=== PATIENT | female | born 1930 | race Caucasian/White ===

== ENCOUNTER → 2017-11-01 | Outpatient (CLI) | payer MEDICARE ==
[~2017-11-01] MED LIST: ACET325 PO; ASPI81CH PO; BUME2 PO; CALC.25 PO; CHOL10002; CIPR500 PO; DICL75ER; DONE10 PO; FISH OIL 500 M1 EAC2 PO; FLUO25TC TOP; IBUP400 PO; IBUP600 PO; LOSA25 PO; MECL12.5 PO; MIDO2.5 PO; Motion Sickness25 M1 PO; OXYACE5T PO; Omeprazole20 M1; POTCHL10ER PO; Zoloft50 MG PO
[2017-11-01 14:57] LABS: BASOPHILS ABSOLUTE AUTO 0.02 K/mm3 (0.00-0.23); BASOPHILS PERCENT AUTO 0 % (0-2); EOSINOPHILS ABSOLUTE AUTO 0.71 K/mm3 (0.00-0.68); EOSINOPHILS PERCENT AUTO 9 % (0-6); Hematocrit 37.9 % (33.0-51.0); Hemoglobin 12.5 g/dL (11.5-16.0); IMMATURE GRAN ABSOLUTE AUTO 0.02 K/mm3 (0.00-0.10); IMMATURE GRAN PERCENT AUTO 0 % (0-1); LYMPHOCYTES ABSOLUTE AUTO 1.74 K/mm3 (0.84-5.20); LYMPHOCYTES PERCENT AUTO 23 % (21-46); MONOCYTES ABSOLUTE AUTO 0.79 K/mm3 (0.16-1.47); MONOCYTES PERCENT AUTO 10 % (4-13); Mean Corpuscular HGB 29.3 pg (26.0-34.0); Mean Corpuscular Volume 89 fL (80-100); NEUTROPHILS ABSOLUTE AUTO 4.32 K/mm3 (1.96-9.15); NEUTROPHILS PERCENT AUTO 57 % (41-73); Platelet Count 109 K/mm3 (150-400); RDW Coefficient Variation 14.3 % (11.7-14.2); Red Blood Cell Count 4.27 M/mm3 (3.80-5.20)
[2017-11-01 15:31] LABS: Albumin, Blood 3.6 g/dL (3.4-5.0); Albumin/Globulin Ratio 0.8 (0.8-1.8); Bilirubin, Total 0.3 mg/dL (0.1-1.0); Bun/Creatinine Ratio 17.5 (12.0-20.0); Calcium, Blood 9.1 mg/dL (8.5-10.1); Creatinine, Blood 1.26 mg/dL (0.40-1.00); Globulin, Blood 4.7 g/dL (2.2-4.0); Potassium, Blood 3.6 mmol/L (3.5-5.5); Thyroid Stimulating Hormone 4.201 uIU/mL (0.360-4.800); Total Protein, Blood 8.3 g/dL (6.4-8.2)
== END ==
LOC: LAB EV 14:51 → LAB SHORT 14:51
PROVIDERS: Physician Assistant
DX: D69.6 Thrombocytopenia, unspecified (principal); R53.83 Other fatigue
CPT/HCPCS: 80053; 82607; 82746; 84443; 85025

== ENCOUNTER → 2017-11-02 | Outpatient (CLI) | payer MEDICARE ==
[2017-11-02 11:57] LABS: Appearance, Urine Clear (Clear); Bilirubin, Urine Neg (Neg); Blood, Urine Neg (Neg); Color, Urine Yellow (P-Yellow); Glucose Qualitative, Urine Neg (Normal); Ketones, Urine Neg (Neg); Leukocyte Esterase, Urine Neg (Neg); Nitrite, Urine Neg (Neg); Protein, Urine Neg (Neg); Specific Gravity, Urine 1.015 (1.003-1.022); Urobilinogen, Urine NORM (Normal); pH, Urine 6.5 (5.0-8.0)
== END ==
LOC: LAB SHORT 11:51 → LAB EV 11:51
PROVIDERS: Physician Assistant
DX: R53.83 Other fatigue (principal)
CPT/HCPCS: 81003

== ENCOUNTER → 2017-12-22 | Outpatient (CLI) | payer MEDICARE | LOC: LAB SHORT 13:32 → PLD 13:32 | DX: D48.5 Neoplasm of uncertain behavior of skin (principal) | CPT/HCPCS: 88305 ==

== ENCOUNTER → 2019-04-03 | Outpatient (CLI) | payer MEDICARE ==
[~2019-04-03] MED LIST changes: +Colace250 MG PO; +Norco 5-325 Ta1 EACH PO; +Zofran Odt4 MG SL
[2019-04-03 11:02] LABS: Albumin, Blood 3.3 g/dL (3.4-5.0); Anion Gap 7 mmol/L (6-16); Blood Urea Nitrogen 21 mg/dL (8-24); Bun/Creatinine Ratio 18.6 (12.0-20.0); CO2, Blood 32 mmol/L (21-32); Chloride, Blood 100 mmol/L (98-108); Creatinine, Blood 1.13 mg/dL (0.40-1.00); Glomerular Filtration Rate 48 (60-); Glucose, Blood 183 mg/dL (70-99); Phosphorus, Blood 2.7 mg/dL (2.5-4.9); Potassium, Blood 3.7 mmol/L (3.5-5.5); Sodium, Blood 139 mmol/L (136-145)
== END | disposition home or self-care (01) ==
LOC: EDSTATUS 08:45 → LAB HD 08:45
PROVIDERS: Internal Medicine Nephrology
DX: N18.3 Chronic kidney disease, stage 3 (moderate) (principal); D63.1 Anemia in chronic kidney disease
CPT/HCPCS: 36415; 80069; 85018

== ENCOUNTER → 2019-06-08 | Outpatient (CLI) | payer MEDICARE ==
[2019-06-08 17:00] LABS: BASOPHILS ABSOLUTE AUTO 0.01 K/mm3 (0.00-0.23); BASOPHILS PERCENT AUTO 0 % (0-2); EOSINOPHILS ABSOLUTE AUTO 0.45 K/mm3 (0.00-0.68); EOSINOPHILS PERCENT AUTO 6 % (0-6); Hematocrit 33.7 % (33.0-51.0); Hemoglobin 10.7 g/dL (11.5-16.0); IMMATURE GRAN ABSOLUTE AUTO 0.02 K/mm3 (0.00-0.10); IMMATURE GRAN PERCENT AUTO 0 % (0-1); LYMPHOCYTES ABSOLUTE AUTO 1.34 K/mm3 (0.84-5.20); LYMPHOCYTES PERCENT AUTO 18 % (21-46); MONOCYTES ABSOLUTE AUTO 0.93 K/mm3 (0.16-1.47); MONOCYTES PERCENT AUTO 12 % (4-13); Mean Corpuscular HGB 27.1 pg (26.0-34.0); Mean Corpuscular HGB Conc 31.8 g/dL (31.5-36.5); Mean Corpuscular Volume 85 fL (80-100); NEUTROPHILS ABSOLUTE AUTO 4.73 K/mm3 (1.96-9.15); NEUTROPHILS PERCENT AUTO 63 % (41-73); RDW Coefficient Variation 15.5 % (11.7-14.2); Red Blood Cell Count 3.95 M/mm3 (3.80-5.20); White Blood Cell Count 7.48 K/mm3 (4.00-11.30)
[2019-06-08 17:14] LABS: Albumin, Blood 3.5 g/dL (3.4-5.0); Albumin/Globulin Ratio 0.7 (0.8-1.8); Bilirubin, Total 0.3 mg/dL (0.1-1.0); Bun/Creatinine Ratio 23.9 (12.0-20.0); Calcium, Blood 8.8 mg/dL (8.5-10.1); Creatinine, Blood 1.55 mg/dL (0.40-1.00); Globulin, Blood 4.9 g/dL (2.2-4.0); Potassium, Blood 4.1 mmol/L (3.5-5.5); Total Protein, Blood 8.4 g/dL (6.4-8.2)
[2019-06-08 17:54] LABS: Mean Platelet Volume 11.5 fL (9.1-12.4); Platelet Count 117 K/mm3 (150-400)
== END ==
LOC: LAB SHORT 16:51 → LAB EV 16:51
PROVIDERS: Physician Assistant
DX: R06.00 Dyspnea, unspecified (principal)
CPT/HCPCS: 80053; 83880; 85025

== ENCOUNTER 2019-07-17 15:28 | Emergency (ER) | payer MEDICARE ==
[~2019-07-17] VITALS: Ht 160 cm; Wt 90.7 kg
[~2019-07-17 15:28] MED LIST changes: -ALBU90OI INH; -ALDACTONE25 MG PO; -GABA100 PO; -Nitrostat0.3 MG SL
[2019-07-17] MEDS ORDERED: Nitrostat0.3 MG SL (16:26)
[2019-07-17] MEDS ORDERED: ALDACTONE25 MG PO (16:26)
== END 2019-07-17 16:47 | disposition home or self-care (01) ==
LOC: ER 15:28
DX: R79.89 Other specified abnormal findings of blood chemistry (principal); M19.011 Primary osteoarthritis, right shoulder; I12.9 Hypertensive chronic kidney disease with stage 1 through stage 4 chronic kidney disease, or unspecified chronic kidney disease; N18.9 Chronic kidney disease, unspecified; I25.10 Atherosclerotic heart disease of native coronary artery without angina pectoris; E78.5 Hyperlipidemia, unspecified; J44.9 Chronic obstructive pulmonary disease, unspecified; F03.90 Unspecified dementia, unspecified severity, without behavioral disturbance, psychotic disturbance, mood disturbance, and anxiety; Z87.891 Personal history of nicotine dependence; Z79.899 Other long term (current) drug therapy; Z79.82 Long term (current) use of aspirin
CPT/HCPCS: 36415; 70450; 73030; 93005; 93010; 99284-25

== ENCOUNTER → 2019-07-17 | Outpatient (CLI) | payer MEDICARE ==
[~2019-07-17] MED LIST changes: +ALBU90OI INH; +ALDACTONE25 MG PO; -BUME2 PO; +Bumetanide2 MG PO; -CHOL10002; -DONE10 PO; +DONEPEZIL HCL10 MG PO; +FISH OIL 1,0001 EAC2 PO; -FISH OIL 500 M1 EAC2 PO; +GABA100 PO; +Nitrostat0.3 MG SL; +OMEPRAZOLE20 MG PO; -Omeprazole20 M1; +POTA10T PO; -POTCHL10ER PO; +SERT25 PO; +VITAMIN D34000 UNIT PO; -Zoloft50 MG PO
[2019-07-17 14:03] LABS: BASOPHILS ABSOLUTE AUTO 0.01 K/mm3 (0.00-0.23); BASOPHILS PERCENT AUTO 0 % (0-2); EOSINOPHILS ABSOLUTE AUTO 0.49 K/mm3 (0.00-0.68); EOSINOPHILS PERCENT AUTO 6 % (0-6); Hematocrit 32.7 % (33.0-51.0); Hemoglobin 10.1 g/dL (11.5-16.0); IMMATURE GRAN ABSOLUTE AUTO 0.03 K/mm3 (0.00-0.10); IMMATURE GRAN PERCENT AUTO 0 % (0-1); LYMPHOCYTES ABSOLUTE AUTO 1.78 K/mm3 (0.84-5.20); LYMPHOCYTES PERCENT AUTO 23 % (21-46); MONOCYTES ABSOLUTE AUTO 0.87 K/mm3 (0.16-1.47); MONOCYTES PERCENT AUTO 11 % (4-13); Mean Corpuscular HGB 26.2 pg (26.0-34.0); Mean Corpuscular HGB Conc 30.9 g/dL (31.5-36.5); Mean Corpuscular Volume 85 fL (80-100); NEUTROPHILS ABSOLUTE AUTO 4.61 K/mm3 (1.96-9.15); NEUTROPHILS PERCENT AUTO 59 % (41-73); RDW Coefficient Variation 15.5 % (11.7-14.2); RDW Standard Deviation 47.5 fL (35.1-46.3); Red Blood Cell Count 3.85 M/mm3 (3.80-5.20); White Blood Cell Count 7.79 K/mm3 (4.00-11.30)
[2019-07-17 14:24] LABS: Albumin, Blood 3.1 g/dL (3.4-5.0); Albumin/Globulin Ratio 0.8 (0.8-1.8); Bilirubin, Total 0.3 mg/dL (0.1-1.0); Bun/Creatinine Ratio 18.1 (12.0-20.0); Calcium, Blood 8.9 mg/dL (8.5-10.1); Creatinine, Blood 1.27 mg/dL (0.40-1.00); Globulin, Blood 4.1 g/dL (2.2-4.0); Potassium, Blood 4.8 mmol/L (3.5-5.5); Thyroid Stimulating Hormone 3.5 uIU/mL (0.360-4.800); Total Protein, Blood 7.2 g/dL (6.4-8.2); Troponin I 0.077 ng/mL (0.000-0.040)
[2019-07-17 14:27] LABS: Mean Platelet Volume 10.9 fL (9.1-12.4); Platelet Count 97 K/mm3 (150-400)
== END | disposition home or self-care (01) ==
LOC: LAB EV 13:59 → LAB SHORT 13:59
PROVIDERS: Physician Assistant
DX: R00.2 Palpitations (principal)
CPT/HCPCS: 80053; 84443; 84484; 85025

== ENCOUNTER 2019-07-22 08:10 | Observation (INO) | payer MEDICARE ==
[~2019-07-22] VITALS: Ht 165.1 cm; Wt 108.2 kg
[~2019-07-22 08:10] MED LIST changes: +ALDACTONE25 MG PO; +Nitrostat0.3 MG SL
[2019-07-22 09:22] LABS: Source, Urine Clean Catch
[2019-07-22 09:24] LABS: Appearance, Urine Clear (Clear); Bilirubin, Urine Neg (Neg); Blood, Urine Neg (Neg); Color, Urine Yellow (P-Yellow); Glucose Qualitative, Urine Neg (Neg); Ketones, Urine Neg (Neg); Leukocyte Esterase, Urine Neg (Neg); Nitrite, Urine Neg (Neg); Protein, Urine Neg (Neg); Specific Gravity, Urine 1.015 (1.003-1.022); Urobilinogen, Urine NORM (Normal)
[2019-07-22 09:51] LABS: BASOPHILS ABSOLUTE AUTO 0.02 K/mm3 (0.00-0.23); BASOPHILS PERCENT AUTO 0 % (0-2); EOSINOPHILS ABSOLUTE AUTO 0.66 K/mm3 (0.00-0.68); EOSINOPHILS PERCENT AUTO 6 % (0-6); Hematocrit 32.5 % (33.0-51.0); IMMATURE GRAN ABSOLUTE AUTO 0.06 K/mm3 (0.00-0.10); IMMATURE GRAN PERCENT AUTO 1 % (0-1); LYMPHOCYTES ABSOLUTE AUTO 1.49 K/mm3 (0.84-5.20); LYMPHOCYTES PERCENT AUTO 13 % (21-46); MONOCYTES ABSOLUTE AUTO 1.48 K/mm3 (0.16-1.47); MONOCYTES PERCENT AUTO 13 % (4-13); Mean Corpuscular HGB 26.1 pg (26.0-34.0); Mean Corpuscular HGB Conc 30.8 g/dL (31.5-36.5); Mean Corpuscular Volume 85 fL (80-100); Mean Platelet Volume 11.2 fL (9.1-12.4); NEUTROPHILS ABSOLUTE AUTO 7.82 K/mm3 (1.96-9.15); NEUTROPHILS PERCENT AUTO 68 % (41-73); Platelet Count 118 K/mm3 (150-400); RDW Coefficient Variation 15.8 % (11.7-14.2); Red Blood Cell Count 3.83 M/mm3 (3.80-5.20); White Blood Cell Count 11.53 K/mm3 (4.00-11.30)
[2019-07-22 10:14] LABS: Albumin, Blood 3.1 g/dL (3.4-5.0); Albumin/Globulin Ratio 0.7 (0.8-1.8); Bilirubin, Total 0.3 mg/dL (0.1-1.0); Bun/Creatinine Ratio 23.1 (12.0-20.0); Creatinine, Blood 1.86 mg/dL (0.40-1.00); Globulin, Blood 4.3 g/dL (2.2-4.0); Magnesium, Blood 2.1 mg/dL (1.6-2.4); Potassium, Blood 4.4 mmol/L (3.5-5.5); Total Protein, Blood 7.4 g/dL (6.4-8.2)
--- NOTE | 2019-07-22 11:46 | NUR ---
ADMIT NOTE- PT ADMITTED D/T FREQUENT FALLS, PER REPORT PT HAS Fx CLAVACLE ON THE RIGHT. RIGHT ARM IN A SLING. PT IS COVERED IN BRUISES FROM HER FREQUENT FALLS AT HOME. SKIN TEAR PRESENT ON RIGHT ELBOW ON ADMIT, BANDAGE HAS SLIPPED DOWN AND IT WAS BLEEDING. PLACED A HEEL PROTECTOR OVER THE AREA
--- NOTE | 2019-07-22 12:20 | NUR ---
CALLED [facility] TO REQUEST AN ACTIVE MED LIST.
[2019-07-22] MEDS ORDERED: GABA100 PO (12:37)
[2019-07-22] MEDS ORDERED: Bumetanide2 MG PO (12:41)
[2019-07-22] MEDS ORDERED: ALBU90OI INH (12:43)
--- NOTE | 2019-07-22 14:53 | NUR ---
DR ROCA CAME TO SEE THE PT. STATED HE WILL PUT IN THE ADMIT ORDERS SHORTLY. PT USES INAPPROPRIATE LANGUAGE AND HAS BEEN REDIRECTED EASILY AT THIS POINT. PT IS INCONTINENT, ATTENDS IN PLACE HOWEVER PT REQUESTED TO USE THE BSC. PT TRANSFERED 2PA TO THE BEDSIDE COMODE AND BACK ATTENDS CHANGED. PT STATED PAIN IN HER RIGHT SHOULDER WHILE WAS PRESENT IN THE ROOM.
--- NOTE | 2019-07-22 17:32 | NUR ---
SHIFT SUMMARY- CALLED DR ROCA AND RECIEVED ORDER TO HOLD BUMEX, PT IS RECIEVING IVF AT THIS TIME. PT WORKED WITH PHYSICAL THERAPY THIS EVENING AFTER ADMIT. PT TRANSFERED TO THE CHAIR AND SAT UP FOR ABOUT 45MIN TO 1 HOUR BEFORE SHE GOT UP TO PUT HERSELF BACK INTO BED. CALLED TUBE DRAWING SUPERVISOR AND REQUESTED PT BE PUT ON THE MONITORS. CALLED PARTICLEBOARD FACTORY WORKER, PT PLACED ON MONITOR NOW. PT ON TELE NSR WITH A FIRST DEGREE AT 67 AT THE TIME OF ADMIT; NO CALLS ABOUT EVENTS.
--- NOTE | 2019-07-22 18:15 | NUR ---
CALLED DR ROCA- WHEN STAFF WENT TO PLACE THE DNR BRACELET ON THE PT SHE STATED NO "I WANT YOU TO DO EVERYTHING" "IF MY HEART STOPS BRING ME BACK". PT HAS A POLST FORM FROM 05-11-17 THAT SAYS FULL CODE. PER DR ROCA PT STATUS SHOULD BE CHANGED TO FULL CODE.
--- NOTE | 2019-07-23 02:20 | NUR ---
SHIFT SUMMARY: 89 Y/O FEMALE HAD RESTED COMFORTALBY; PT C/O RIGHT SHOULDER PAIN RATED 6/10 WITH NORCO 5/325MG PO GIVEN X 1 WITH RELIEF FELT; WEARING RIGHT ARM SLING (TENDS TO REMOVE AT TIMES WITH NURSING STAFF REAPPLYING); ALERT AND ORIENTED X 2; ABLE TO FOLLOW VERY SIMPLE VERBAL COMMANDS; ABLE TO STAND, PIVOT AND TRANSFER TO BSC X 2 ASSIST VIA GAIT BELT AND WALKER; PT REQUIRES FREQUENT REDIRECTION AT TIMES FROM NURSING STAFF; VITAL SIGNS STABLE; BED ALARM APPLIED, BED LOW POSITION WITH CALL LIGHT AT SIDE.
[2019-07-23 05:35] LABS: Bun/Creatinine Ratio 25.7 (12.0-20.0); Calcium, Blood 8.6 mg/dL (8.5-10.1); Creatinine, Blood 1.48 mg/dL (0.40-1.00); Potassium, Blood 4.5 mmol/L (3.5-5.5)
--- NOTE | 2019-07-23 06:35 | NUR ---
SHIFT SUMMARY: ASSUMED CARE OF PATIENT AT 0300 AFTER RECIEVING REPORT. PATIENT IS ORIENTED TO SELF BUT FOLLOWS DIRECTION WELL. PATIENT IS REMOVING TELEMETRY LEADS ALL SHIFT. [employer] REPORTS A RYTHM OF SR WITH A FIRST DEGREE BLOCK, NO EVENTS SINCE MONIOTRING STARTED. NAIL FEEDER MD IS NOTIFIED AND TELEMETRY IS DISCONTINUED. PATIENT IS REPORTING PAIN IN R SHOULDER 8/10, PRN HYDROCODONE IS GIVEN WITH GOOD EFFECT. BED ALRAM IS ON AND BED IS IN THE LOW POSITION FOR SAFETY.
--- NOTE | 2019-07-23 15:54 | NUR ---
SHIFT SUMMARY- PT ALERT AND ORIENTED TO SELF AND FAMILY. PT IS A POOR HISTORIAN. PT HAS PAIN R/T Fx RIGHT CLAVICLE. 2P MODERATE ASSIST TO THE BSC. PT HAD A BM AGAIN THIS AFTERNOON, VERY FIRM BROWN STOOL. PT IS ALSO INCONTINENT AND ATTENDS ARE IN PLACE. PT PLEASENTLY CONFUSED, USES FOUL [place]ANGUAGEE WHEN SHE MOVES (SO GOOD INDICATION SHE PLANS TO GET UP ON HER OWN WHEN YOU CAN HEAR THE CURSING IN THE HALLWAY). PT IS ALSO ON THE MONITOR SHE HAS HAD MULTIPLE FALLS RECENTLY AT HOME. PT PULLED HER IV OUT AND IS A HARD STICK, ORDERED NO IV ACCESS AT THIS TIME. TELE WAS DC'D LAST NIGHT. NEW ORDER FOR HEAD MRI, SCREENING FORM COMPLETED WITH THE PT, AND WITH HER MEDICAL RECORD. PT HAD AN MRI IN 2017. PT C/O PAIN WHEN BEING ASSISTED TO THE BATHROOM WHEN STAFF ASKED WHERE HER PAIN WAS SHE SHOUTED "MY A*#HOLE!." PT HAS BEEN MEDICATED WITH NORCO FOR PAIN PRIOR TO SHIFT CHANGE AND FAMILY WAS CONCERNED ABOUT HER LEVEL OF SEDATION.
--- NOTE | 2019-07-24 04:39 | NUR ---
SHIFT SUMMARY: 89 Y/O OBESE FEMALE RESTED COMFORTABLY ALL SHIFT; PT DID CALL FOR ANY ASSISTANCE REQUIRED TO VOID; PT ABLE TO PIVOT AND TRANSFER VIA GAIT BELT X 2 ASSIST VIA NURSING STAFF, BALANCE VERY UNSTEADY; WEARING RIGHT ARM SLING AT 45 DEGREES; PT ALERT AND ORIENTED X 2 AND SWEARS ALOT WHEN REPOSITIONED BY STAFF; PT VERY COOPERATIVE; C/O RIGHT SHOULDER PAIN 6/10 WITH NORCO 5/325MG PO X 1 GIVEN TWICE WITH RELIEF FELT; DENIES NAUSEA; BED ALARM APPLIED, BED LOW POSITION WITH CALL LIGHT AT SIDE.
[2019-07-24 05:02] LABS: BASOPHILS ABSOLUTE AUTO 0.02 K/mm3 (0.00-0.23); BASOPHILS PERCENT AUTO 0 % (0-2); EOSINOPHILS ABSOLUTE AUTO 0.66 K/mm3 (0.00-0.68); EOSINOPHILS PERCENT AUTO 9 % (0-6); Hematocrit 32.2 % (33.0-51.0); Hemoglobin 9.6 g/dL (11.5-16.0); IMMATURE GRAN ABSOLUTE AUTO 0.05 K/mm3 (0.00-0.10); IMMATURE GRAN PERCENT AUTO 1 % (0-1); LYMPHOCYTES ABSOLUTE AUTO 1.98 K/mm3 (0.84-5.20); LYMPHOCYTES PERCENT AUTO 27 % (21-46); MONOCYTES ABSOLUTE AUTO 1.11 K/mm3 (0.16-1.47); MONOCYTES PERCENT AUTO 15 % (4-13); Mean Corpuscular HGB 25.5 pg (26.0-34.0); Mean Corpuscular HGB Conc 29.8 g/dL (31.5-36.5); Mean Corpuscular Volume 86 fL (80-100); Mean Platelet Volume 10.9 fL (9.1-12.4); NEUTROPHILS ABSOLUTE AUTO 3.64 K/mm3 (1.96-9.15); NEUTROPHILS PERCENT AUTO 49 % (41-73); Platelet Count 128 K/mm3 (150-400); RDW Coefficient Variation 15.9 % (11.7-14.2); RDW Standard Deviation 49.8 fL (35.1-46.3); Red Blood Cell Count 3.76 M/mm3 (3.80-5.20); White Blood Cell Count 7.46 K/mm3 (4.00-11.30)
[2019-07-24 05:22] LABS: Bun/Creatinine Ratio 26.2 (12.0-20.0); Calcium, Blood 8.6 mg/dL (8.5-10.1); Creatinine, Blood 1.26 mg/dL (0.40-1.00); Potassium, Blood 3.8 mmol/L (3.5-5.5)
--- NOTE | 2019-07-24 12:23 | NUR ---
PROVIDER UPDATE PROVIDER CALLED WITH ORTHOSTATIC BP CHECKS, MRI CALLED TO [facility] SCAN FOR THIS AFTERNOON AT 1500.
--- NOTE | 2019-07-24 14:22 | NUR ---
MRI PT TO MRI, TRANSPORTED BY [facility].
--- NOTE | 2019-07-24 15:35 | NUR ---
PROVIDER UPDATE PROVIDER UPDATED, PT WAS UN COOPERATIVE WITH MRI STUDY.
--- NOTE | 2019-07-24 18:49 | NUR ---
SHIFT SUMMARY PT HAD NO ACUTE CHANGES THIS SHIFT. PT MEDICATED X2 FOR PAIN. PT HAS DRESSING IN PLACE ON LEFT ELBOW. PT HAD A GOOD APETITE THIS SHIFT. PT HAS BED ALARM IN PLACE AND CALL LIGHT WITH IN REACH. PT DECLINED MRI AND PT THIS SHIFT.
--- NOTE | 2019-07-24 19:50 | NUR ---
PATIENT TRANSFERRED SELF TO THE BED FROM THE CHAIR. SHE DENIED ANY PAIN OR DISCOMFORT. ASSISTED HER TO BED, AND PLACED THE CALL LIGHT IN REACH. BSC WAS PLACED NEAR THE BED SHE GETS UP AND GOES TO IT. BED ALARM PLACED. WILL CONTINUE TO MONITOR.
--- NOTE | 2019-07-25 05:10 | NUR ---
SHIFT SUMMARY: 89 Y/O FEMALE ADMITTED FOR WEAKNESS AND FALLS. SACHA HAS BEEN PLEASANTLY CONFUSED THROUGHOUT THE NIGHT. SHE WOULD NOT USE THE CALL LIGHT AND WOULD GET UP ON HER OWN. SHE WAS UNSTEADY ON HER FEET, AND NEEDING 1 ASSIST TO GET UP AND TWO ASSIST TO GET BACK TO BED. SHE HAS BEEN CONTIENT TO THE BSC. PAIN HAS BEEN MANAGED WITH NORCO. ARM HAS REMAINED IN SLING. NO ACUTE CHANGES OCCURRED THIS SHIFT. WILL REPORT TO DAY SHIFT.
[2019-07-25 05:22] LABS: BASOPHILS ABSOLUTE AUTO 0.02 K/mm3 (0.00-0.23); BASOPHILS PERCENT AUTO 0 % (0-2); EOSINOPHILS ABSOLUTE AUTO 0.65 K/mm3 (0.00-0.68); EOSINOPHILS PERCENT AUTO 8 % (0-6); Hematocrit 32.5 % (33.0-51.0); Hemoglobin 9.6 g/dL (11.5-16.0); IMMATURE GRAN ABSOLUTE AUTO 0.04 K/mm3 (0.00-0.10); IMMATURE GRAN PERCENT AUTO 1 % (0-1); LYMPHOCYTES ABSOLUTE AUTO 1.81 K/mm3 (0.84-5.20); LYMPHOCYTES PERCENT AUTO 23 % (21-46); MONOCYTES ABSOLUTE AUTO 1.09 K/mm3 (0.16-1.47); MONOCYTES PERCENT AUTO 14 % (4-13); Mean Corpuscular HGB 25.4 pg (26.0-34.0); Mean Corpuscular HGB Conc 29.5 g/dL (31.5-36.5); Mean Corpuscular Volume 86 fL (80-100); Mean Platelet Volume 11.4 fL (9.1-12.4); NEUTROPHILS ABSOLUTE AUTO 4.13 K/mm3 (1.96-9.15); NEUTROPHILS PERCENT AUTO 53 % (41-73); Platelet Count 140 K/mm3 (150-400); RDW Coefficient Variation 16.1 % (11.7-14.2); RDW Standard Deviation 49.8 fL (35.1-46.3); Red Blood Cell Count 3.78 M/mm3 (3.80-5.20); White Blood Cell Count 7.74 K/mm3 (4.00-11.30)
[2019-07-25 05:48] LABS: Bun/Creatinine Ratio 26.5 (12.0-20.0); Calcium, Blood 8.8 mg/dL (8.5-10.1); Creatinine, Blood 1.17 mg/dL (0.40-1.00); Potassium, Blood 3.7 mmol/L (3.5-5.5)
--- NOTE | 2019-07-25 15:48 | NUR ---
SHIFT SUMMARY PT HAD NO ACUTE CHANGES THIS SHIFT. PT WAS ORIENTED TO SELF AND FAMILY. PT AMBULATED WITH ASSISTANCE TO SHOWER AND TOILET. PT MEDICATED FOR PAIN X1 ONE THIS SHIFT. PT HAS DRESSING ON LEFT ELBOW. BED ALARM ON, CALL LIGHT WITH IN REACH. WILL COUNTINUE TO MONITOR THIS SHIFT AND REPORT TO [facility] RN.
--- NOTE | 2019-07-25 19:25 | NUR ---
PATIENT WAS SITTING UP IN HER CHAIR JUST GOT BACK FROM THE BATHROOM. STATES SHE IS DOING OK OTHER THEN PAIN IN HER SHOULDER. INFORMED HER WILL PULL HER PAIN MED WITH NIGHT MEDS SHE AGREED TO THIS. TOOK OUT DINNER TRAY. WATER GIVEN. CALL LIGHT IN REACH AND CHAIR ALARM ON.
--- NOTE | 2019-07-26 05:07 | NUR ---
SHIFT SUMMARY: SACHA HAS HAD A GOOD NIGHT. PAIN HAS BEEN CONTROLED. SHE ONLY NEEDED 1 DOSE TONIGHT BEFORE BED. SHE HAS BEEN ABLE TO GET UP WITH ASSISTANCE USING THE WALKER TO GO TO THE BATHROOM. SHE STILL HAS DIFFICULTY GETTING BACK TO BED. VS HAVE REMAINED STABLE. NO ACUTE CHANGES THIS SHIFT. WILL REPORT TO DAY SHIFT.
[2019-07-26 05:40] LABS: Bun/Creatinine Ratio 23.7 (12.0-20.0); Calcium, Blood 8.7 mg/dL (8.5-10.1); Creatinine, Blood 0.97 mg/dL (0.40-1.00)
--- NOTE | 2019-07-26 17:04 | NUR ---
SHIFT SUMMARY- PT A/OX2, MEDICATED X2 FOR PAIN TO RIGHT CLAVICLE. PT 1 ASSIST WITH FWW. LS CLEAR, ON RA. HRR. ORTHOSTATICS COMPLETED THIS SHIFT, NO DROP NOTED. PT AWAITING DISCHARGE HOME WITH [facility] SN[facility]. NO OTHER ACUTE CHANGES THIS SHIFT.
--- NOTE | 2019-07-26 19:40 | NUR ---
PATIENT IN BED WATCHING TV, NO ACUTE CHANGES TODAY. PAIN IS AT TOLERABLE LEVEL 3/10. ARM IN SLING, DENIES ANY NEEDS OR CONCERNS AT THIS TIME. CALL LIGHT IN REACH, BED ALARM ON.
--- NOTE | 2019-07-26 23:30 | NUR ---
PATIENT FOUND GETTING OUT OF BED, DOES NOT USE THE CALL LIGHT, ASSISTED TO BATHROOM, USING WALKER. IS ABLE TO WALK SELF TO THE BATHROOM BUT NEEDS HELP GETTING UP AND DOWN AND GETTING HER ATTENDS CHANGED. ATTENDS CHANGED, VOIDED. BACK TO BED, CALL LIGHT IN REACH BED ALARM ON.
--- NOTE | 2019-07-27 02:00 | NUR ---
PATIENT HAS BEEN RESTING UNTIL NOW WHEN SHE WAS FOUND BY MONITORS GETTING UP OUT OF BED. ASSISTED AGAIN TO THE BATHROOM WITH WALKER AND BACK TO BED. BED ALARM ON AND CALL LIGHT IN REACH.
--- NOTE | 2019-07-27 07:14 | NUR ---
SHIFT SUMMARY: SACHA HAD A GOOD NIGHT, SLEPT OFF AND ON, ONLY GETTING UP TO USE THE BATHROOM. REPORTED PAIN AT 3/10 MOST OF THE NIGHT, NEVER ASKED FOR PAIN MEDS. WALKED GOOD TO THE BATHROOM WITH USE OF WALKER. HAD NO ACUTE CHANGES OR CONCERNS. WILL REPORT TO DAY SHIFT.
--- NOTE | 2019-07-27 16:33 | NUR ---
REVIEW D'C W/DAUGHTER. AWARE THAT [facility] WILL CALL FOR F/U APPT AND THEY WILL SET UO; HH W/[facility], GET MEDICAL EQUIPMENT SET UP AND SET UP APPT W/NEUROSURGEON. ANSWER ALL QUESTIONS. CLOTHES PUT ON. IN W/C W/TANKER SERVICEMAN AND DAUGHTER DOWN TO POV
== END 2019-07-27 16:23 | disposition home health service (06) ==
LOC: ER 08:10 → MEDS 08:11 → ER 08:11 → MEDS 11:45 → ER 07-23 13:09 → MEDS 07-23 13:09
PROVIDERS: Physician Assistant; ADMIT Internal Medicine Endocrinology, Diabetes & Metabolism
DX: R29.6 Repeated falls (principal); I95.1 Orthostatic hypotension; S41.111A Laceration without foreign body of right upper arm, initial encounter; S42.001A Fracture of unspecified part of right clavicle, initial encounter for closed fracture; E87.1 Hypo-osmolality and hyponatremia; F03.90 Unspecified dementia, unspecified severity, without behavioral disturbance, psychotic disturbance, mood disturbance, and anxiety; G91.0 Communicating hydrocephalus; G91.2 (Idiopathic) normal pressure hydrocephalus; I25.10 Atherosclerotic heart disease of native coronary artery without angina pectoris; N17.9 Acute kidney failure, unspecified; I12.9 Hypertensive chronic kidney disease with stage 1 through stage 4 chronic kidney disease, or unspecified chronic kidney disease; N18.3 Chronic kidney disease, stage 3 (moderate); D63.1 Anemia in chronic kidney disease; J44.9 Chronic obstructive pulmonary disease, unspecified; M81.0 Age-related osteoporosis without current pathological fracture; G47.33 Obstructive sleep apnea (adult) (pediatric); N31.9 Neuromuscular dysfunction of bladder, unspecified; N39.498 Other specified urinary incontinence; M19.90 Unspecified osteoarthritis, unspecified site; E78.5 Hyperlipidemia, unspecified; E66.9 Obesity, unspecified; Z68.36 Body mass index [BMI] 36.0-36.9, adult; Z90.49 Acquired absence of other specified parts of digestive tract; Z90.710 Acquired absence of both cervix and uterus; Z87.891 Personal history of nicotine dependence; Z95.5 Presence of coronary angioplasty implant and graft; Z66 Do not resuscitate; Z79.1 Long term (current) use of non-steroidal anti-inflammatories (NSAID); Z79.51 Long term (current) use of inhaled steroids; Z79.82 Long term (current) use of aspirin; Z79.899 Other long term (current) drug therapy; W19.XXXA Unspecified fall, initial encounter
CPT/HCPCS: 36415; 70450; 70551; 73030; 80048; 80053; 81003; 82947; 83735; 85025; 93005; 93010; 94760; 96361; 96372; 96374; 97116; 97162; 97166; 97530; 97535; 99285-25; A9270-GY; G0378; J1650; J2405; J7030

== ENCOUNTER 2019-10-24 17:16 | Emergency (ER) | payer MEDICARE ==
[~2019-10-24] VITALS: Ht 154.9 cm; Wt 103.9 kg
[~2019-10-24 17:16] MED LIST changes: +ALBU90OI INH; -ALDACTONE25 MG PO; -ASPI81CH PO; -CALC.25 PO; +GABA100 PO; -LOSA25 PO; -OMEPRAZOLE20 MG PO; -SERT25 PO
[2019-10-24 19:12] LABS: BASOPHILS ABSOLUTE AUTO 0.02 K/mm3 (0.00-0.23); BASOPHILS PERCENT AUTO 0 % (0-2); EOSINOPHILS ABSOLUTE AUTO 0.29 K/mm3 (0.00-0.68); EOSINOPHILS PERCENT AUTO 3 % (0-6); Hematocrit 32.9 % (33.0-51.0); Hemoglobin 9.6 g/dL (11.5-16.0); IMMATURE GRAN ABSOLUTE AUTO 0.04 K/mm3 (0.00-0.10); IMMATURE GRAN PERCENT AUTO 0 % (0-1); LYMPHOCYTES ABSOLUTE AUTO 1.95 K/mm3 (0.84-5.20); LYMPHOCYTES PERCENT AUTO 19 % (21-46); MONOCYTES ABSOLUTE AUTO 1.19 K/mm3 (0.16-1.47); MONOCYTES PERCENT AUTO 12 % (4-13); Mean Corpuscular HGB 22.2 pg (26.0-34.0); Mean Corpuscular HGB Conc 29.2 g/dL (31.5-36.5); Mean Corpuscular Volume 76 fL (80-100); NEUTROPHILS ABSOLUTE AUTO 6.84 K/mm3 (1.96-9.15); NEUTROPHILS PERCENT AUTO 66 % (41-73); RDW Coefficient Variation 20.7 % (11.7-14.2); RDW Standard Deviation 57.1 fL (35.1-46.3); Red Blood Cell Count 4.32 M/mm3 (3.80-5.20); White Blood Cell Count 10.33 K/mm3 (4.00-11.30)
[2019-10-24 19:14] LABS: Mean Platelet Volume 9.6 fL (9.1-12.4); Platelet Count 131 K/mm3 (150-400)
[2019-10-24 19:29] LABS: Alanine Aminotransfer (ALT/SGP 22 U/L (12-78); Albumin, Blood 3.4 g/dL (3.4-5.0); Albumin/Globulin Ratio 0.8 (0.8-1.8); Alk Phos 86 U/L (50-136); Anion Gap 6 mmol/L (6-16); Aspartate Aminotrans (AST/SGOT 16 U/L (12-37); Bilirubin, Total 0.6 mg/dL (0.1-1.0); Blood Urea Nitrogen 29 mg/dL (8-24); Bun/Creatinine Ratio 31.5 (12.0-20.0); CO2, Blood 31 mmol/L (21-32); Calcium, Blood 8.3 mg/dL (8.5-10.1); Chloride, Blood 100 mmol/L (98-108); Creatinine, Blood 0.92 mg/dL (0.40-1.00); Globulin, Blood 4.2 g/dL (2.2-4.0); Glomerular Filtration Rate >60 (60-); Glucose, Blood 118 mg/dL (70-99); Potassium, Blood 3.9 mmol/L (3.5-5.5); Sodium, Blood 137 mmol/L (136-145); Total Protein, Blood 7.6 g/dL (6.4-8.2)
[2019-10-24] MEDS ORDERED: DONEPEZIL HCL10 M1 PO (20:06)
[2019-10-24] MEDS ORDERED: Klor-Con 1010 MEQ PO (20:08)
[2019-10-24] MEDS ORDERED: Bumetanide2 MG PO (20:09)
[2019-10-24] MEDS ORDERED: SERT25 PO (20:10)
[2019-10-24] MEDS ORDERED: METO5 PO (20:11)
[2019-10-24] MEDS ORDERED: ALDACTONE25 MG PO (20:11)
[2019-10-24] MEDS ORDERED: CALC.25 PO (20:12)
[2019-10-24] MEDS ORDERED: LOSA25 PO (20:13)
[2019-10-24] MEDS ORDERED: OMEPRAZOLE20 MG PO (20:13)
[2019-10-24] MEDS ORDERED: ASPI81CH PO (20:14)
[2019-10-24] MEDS ORDERED: HYDR1TAB94 PO (20:23)
== END 2019-10-24 21:00 | disposition home or self-care (01) ==
LOC: ER 17:16
PROVIDERS: Physician Assistant
DX: S92.321A Displaced fracture of second metatarsal bone, right foot, initial encounter for closed fracture (principal); S62.613A Displaced fracture of proximal phalanx of left middle finger, initial encounter for closed fracture; F03.90 Unspecified dementia, unspecified severity, without behavioral disturbance, psychotic disturbance, mood disturbance, and anxiety; I12.9 Hypertensive chronic kidney disease with stage 1 through stage 4 chronic kidney disease, or unspecified chronic kidney disease; N18.9 Chronic kidney disease, unspecified; I25.10 Atherosclerotic heart disease of native coronary artery without angina pectoris; F32.9 Major depressive disorder, single episode, unspecified; Z87.891 Personal history of nicotine dependence; Z79.899 Other long term (current) drug therapy; Z79.82 Long term (current) use of aspirin; W19.XXXA Unspecified fall, initial encounter
CPT/HCPCS: 29125; 36415; 71046; 73030; 73090; 73130; 73610; 73630; 80053; 85025; 99284-25; A9270